=== PATIENT | male | born 1940 | race Hispanic/Latino ===

== ENCOUNTER 2016-10-01 08:28 | Day surgery (SDC) | payer MEDICARE ==
[2016-10-01 09:05] LABS: Basophils % (Auto) 0.9 % (0.0-1.8); Eosinophils % (Auto) 0.9 % (0.0-4.3); Hemoglobin 12.2 gm/dl (11.8-15.2); Mean Corpuscular HGB Conc 33 % (32-34); Mean Corpuscular Hemoglobin 26 pg (28-32); Mean Corpuscular Volume 80 fl (84-94); Platelet Count 118 K/mm3 (140-440); Red Blood Count 4.65 M/mm3 (3.65-5.03); Red Cell Distribution Width 16.3 % (13.2-15.2); White Blood Count 4.5 K/mm3 (4.5-11.0)
[2016-10-01 09:31] LABS: INR 0.98 (0.87-1.13); Partial Thromboplastin Time 30.9 Sec. (24.2-36.6)
[2016-10-01] MEDS ORDERED: SUBLIMAZE IV ONE (09:42)
[2016-10-01] MEDS ORDERED: VERSED IV ONE (09:42)
--- NOTE | 2016-10-01 11:08 | Cat Scan Report ---
CT BIOPSY BONE MARROW HISTORY: Leukemia evaluation, splenomegaly. DESCRIPTION OF PROCEDURE: Informed consent was obtained. Sterile technique was utilized. 1% lidocaine for skin anesthesia. Conscious sedation was accomplished with Versed and fentanyl. The patient was sedated for 15 minutes. Independent cardiorespiratory monitoring by RN. Intraobserver time was [address] guidance, a 19-gauge introducer needle was advanced into the right posterior iliac bone. For bone marrow aspirations and one 10-gauge bone core were obtained. Pathology was on site to handle the samples. IMPRESSION: Successful CT-guided bone marrow biopsy.
[2016-10-01 13:11] VITALS: BP 118/69
== END 2016-10-01 12:00 | disposition home or self-care (01) ==
LOC: OPU 08:28 → EDSTATUS 08:30 → OPU 12:00
PROVIDERS: ATTEND Internal Medicine Hematology & Oncology
DX: R16.1 Splenomegaly, not elsewhere classified (principal); Z79.01 Long term (current) use of anticoagulants
CPT/HCPCS: 36415; 38221; 77012; 85007; 85025; 85097; 85610; 85730; 88161; 88305; 88311; 88313; J2250; J3010; 88230; 88291